=== PATIENT | male | born 2000 | race Caucasian/White ===

== ENCOUNTER 2020-02-28 05:12 | Emergency (ER) | payer BC ==
[~2020-02-28] VITALS: Ht 177.8 cm; Wt 113.0 kg
[2020-02-28] MEDS ORDERED: HYDROcodone/APAP 5 MG/325 MG (LORTAB) TAB PO ONE (05:45)
[2020-02-28] MEDS ORDERED: IBUPROFEN 800 MG (MOTRIN) TAB PO ONE (05:45)
--- NOTE | 2020-02-28 05:49 | ED GU-Male ---
General Chief Complaint: - Urinary Stated Complaint: GROIN PAIN/DISCOMFORT Source: patient (ANAYA AKERS ) History of Present Illness Date Seen by Provider: Feb 28, 2020 Time Seen by Provider: 05:24 Initial Comments PT ARRIVES VIA POV FROM HOME PT C/O PAIN AND SWELLING AROUND HEAD OF PENIS AFTER INTERCOURSE AROUND 0200 THIS MORNING PT DOES NOT KNOW IF HE HAS BEEN CIRCUMCISED OR NOT, BUT THINKS HE HAS NOT- DESCRIBES RETRACTING AND REPLACING FORESKIN STATES HE COULDN'T GET IT TO GO BACK IN PLACE AFTER INTERCOURSE HAS BEEN ABLE TO URINATE WITH OUT DIFFICULTY. NO DISCHARGE OR BLEEDING FROM PENIS NO BRUISING TO PENIS NO HISTORY OF SIMILAR, AND NO PRIOR PROBLEMS HAS NOT TAKEN ANYTHING FOR PAIN (ANAYA AKERS DO) Allergies and Home Medications Allergies Coded Allergies: No Known Drug Allergies (Unverified , 02/28/20) Patient Home Medication List Home Medication List Reviewed: Yes (CALVIN MARK) Review of Systems Review of Systems Constitutional: no symptoms reported Genitourinary: see HPI (ANAYA AKERS DO) All Other Systemes Reviewed Negative Unless Noted: Yes (CALVIN MARK) Past Qjirfgw-Rtvkmp-Glhipn Hx Patient Social History Alcohol Use: Occasionally Uses Recreational Drug Use: Yes (THC, LSD, MDMA) Drug of Choice: THC, LSD, MDMA Type Used: Electronic/Vapor Recent Foreign Travel: No Contact w/Someone Who Travel: No (ANAYA AKERS DO) Seasonal Allergies Seasonal Allergies: Yes (ANAYA AKERS DO) Past Medical History Surgeries: No Respiratory: Yes Asthma Cardiac: No Neurological: No Genitourinary: No Gastrointestinal: No Musculoskeletal: No Endocrine: No HEENT: No Cancer: No Psychosocial: No Integumentary: No Blood Disorders: No (ANAYA AKERS DO) Physical Exam Vital Signs Vital Signs - First Documented 02/28/20 05:25 Temp 36.8 Pulse 111 Resp 20 B/P (MAP) 149/89 (109) Pulse Ox 97 (CALVIN MARK) Vital Signs Capillary Refill : (ANAYA AKERS DO) Height, Weight, BMI Height: '" Weight: lbs. oz. kg; BMI Method: General Appearance: WD/WN, no apparent distress Male: No testicular tenderness; other (PARAPHIMOSIS WITH SWELLING /EDEMA AND ERYTHEMA OF RESIDUAL FORESKIN. GLANS IS NORMAL IN APPEARANCE. NO BRUISING OR NECROSIS. NO WOUNDS OR SORES/ULCERATIONS. NO DRAINAGE. NO OBVIOUS TIGHT BAND AROUND GLANS OR FORESKIN, AND FORESKIN IS MOBILE. ) (ANAYA AKERS DO) Procedures/Interventions Progress Manual reduction of Paraphimosis: 50/50 mixture of half percent bupivacaine and 2% lidocaine without epinephrine was mixed and 1 cc was applied at 12:00 position and 1 cc was applied at the 6:00 position after the foreskin was thoroughly cleaned with chlorhexidine. When the patient was ascertained to be thoroughly anesthetized manual compression was applied for about 1-2 minutes. We were then able to manually reduce the glans behind the foreskin and witnessed the swelling go down. We will recheck him in about 10-20 minutes. Patient tolerated procedure. (CALVIN MARK) Progress/Results/Core Measures Suspected Sepsis SIRS Temperature: Pulse: Respiratory Rate: Blood Pressure / Mean: (ANAYA AKERS DO) Results/Orders Medications Given in ED Current Medications Medications Dose Ordered Sig/Em Route Start Time Stop Time Status Last Admin Dose Admin Acetaminophen/ Hydrocodone Bitart 1 tab ONCE ONCE PO 02/28/20 05:45 02/28/20 05:46 DC 02/28/20 05:46 1 TAB Ibuprofen 800 mg ONCE ONCE PO 02/28/20 05:45 02/28/20 05:46 DC 02/28/20 05:45 800 MG (CALVIN MARK) Vital Signs/I&O 02/28/20 05:25 Temp 36.8 Pulse 111 Resp 20 B/P (MAP) 149/89 (109) Pulse Ox 97 (CALVIN MARK) Vital Signs/I&O Capillary Refill : (ANAYA AKERS DO) Progress Note : Progress Note ICE PACK APPLIED TO AREA AND PT GIVEN HYDROCODONE AND IBUPROFEN FOR PAIN. (ANAYA AKERS DO) Progress Note #1: Time: 07:17 Progress Note #2: Time: 07:17 Progress Note Assume care of the patient at shift change. I checked on him and the ice had made him more comfortable however with direct manipulation it did cause him quite a bit of pain. We gave him a local block with lidocaine and bupivacaine and 1 that had set up we're able to easily do a manual compression and reduction of the paraphimosis. Penis is still reduced and there is a mild amount of swelling significantly improved from presentation. Her going to allow him to go home and given him return precautions as well as a follow-up with Dr. Bautista, urology. (CALVIN MARK) Departure Impression Primary Impression: Paraphimosis Disposition: 01 HOME, SELF-CARE Condition: Improved Departure-Patient Inst. Decision time for Depature: 07:20 (CALVIN MARK) Referrals: SEN BAUTISTA MD Patient Instructions: Circumcision, Adult Male (DC) Add. Discharge Instructions: Return to the ER if you're unable to urinate. Call Dr. Bautista, urology tomorrow and request follow-up appointment this week. Tylenol and Motrin as necessary for pain. Do not retract the foreskin for approximately one week. Wash the foreskin with water. Do not forcefully retractor foreskin and avoid irritants such as bubble baths or strong soap. Apply a thin amount of bacitracin to the foreskin without retracting it until the wounds heal twice daily. Return to the ER promptly should he notice signs of infection such as redness, increasing swelling pain or drainage. Refrain from sexual activity for the next week. All discharge instructions reviewed with patient and/or family. Voiced understanding. Scripts Bacitracin (Bacitracin) 3.5 Gm Oint...g. 0.5 GM OP BID for 3 Days, #1 TUBE 0 Refills Prov: CALVIN MARK 02/28/20 ANAYA AKERS DO Feb 28, 2020 05:49 CALVIN MARK Feb 28, 2020 07:12
--- NOTE | 2020-02-28 06:34 | NUR ---
IN TO CHECK ON PATIENT. RESTING QUIETLY WITH CALL LIGHT IN REACH. MONITORING MAINTAINED.
--- NOTE | 2020-02-28 06:56 | NUR ---
ASSUMED CARE OF PT. IN ROOM AT THIS TIME.
--- NOTE | 2020-02-28 07:18 | NUR ---
IN TO TALK TO THE PT.
[2020-02-28] MEDS ORDERED: BACI3.5O6 OP (07:24)
[2020-02-28 07:40] VITALS: BP 149/89
== END 2020-02-28 07:40 | disposition home or self-care (01) ==
LOC: ER 05:16
DX: N47.2 Paraphimosis (principal)
CPT/HCPCS: 99281